=== PATIENT | male | born 1930 | race Caucasian/White ===

== ENCOUNTER 2017-07-13 10:35 | Emergency (ER) | payer MEDICARE, BC ==
[~2017-07-13] VITALS: Ht 177.8 cm; Wt 81.8 kg
[~2017-07-13 10:35] MED LIST: ASPIRIN 81M81 MG/TA2 PO; ATIVAN 0.50.5 MG/TAB PO; CLARITIN 1010 MG/TAB PO; LOPRESSOR 225 MG/TAB PO; MIRALAX PA17 GM/Dose PO; NATURE'S BLEND500 M1 PO; NEURONTIN300 MG/CAP PO; NORCO 325 MG-51 TAB PO; OCUVITE1 TA1 PO; PRIL40 PO; PRILOSEC10 MG PO; PRINIVIL10 MG PO; SINEMET 25/101 UDTAB PO; SINGULAIR 110 MG/TAB PO; TOPROL XL 50MG50 MG PO; TYLENOL 500MG500 MG PO; TYLENOL EXTRA500 M1 PO; ZANTAC 150MG T150 MG PO; ZOCOR 80MG80 MG PO; ZYLOPRIM 300MG300 MG PO
[2017-07-13 10:40] VITALS: TEMP 98.4
[2017-07-13 11:40] LABS: HEMATOCRIT 41.5 % (42.0-52.0); HEMOGLOBIN 13.9 g/dl (13.5-18.0); MEAN CELL VOLUME 96 fl (80.0-100.0); MEAN CORPUSCULAR HEMOGLOBIN 32 pg (27.0-31.0); MEAN CORPUSCULAR HGB CONC 34 g/dl (33.0-37.0); MEAN PLATELET VOLUME 11.4 fl (7.4-10.4); PLATELET COUNT 318 K/mm3 (130-400); RED BLOOD COUNT 4.31 M/mm3 (4.20-5.60); WHITE BLOOD COUNT 11.2 K/mm3 (4.8-10.8)
[2017-07-13 11:41] LABS: ADD PATHOLOGY DIFF REVIEW NO
[2017-07-13 11:49] LABS: ADJUSTED CALCIUM 9.4 mg/dL (8.4-10.2); ALBUMIN 3.7 gm/dL (3.5-5.0); BILIRUBIN,TOTAL 0.8 mg/dL (0.0-1.0); CALCIUM 9.2 mg/dL (8.4-10.2); CREATININE, serum 0.8 mg/dL (0.66-1.25); TOTAL PROTEIN 7.5 gm/dL (6.4-8.2); URIC ACID 4.1 mg/dL (3.5-8.5)
[2017-07-13 12:00] LABS: BAND 2 % (0-10); EOSINOPHIL 1 % (0-4); LYMPHOCYTE 5 % (20.0-51.0); NEUTROPHILS 82 % (42.0-75.2); PLATELET ESTIMATE NORMAL (NORMAL); TOTAL CELLS COUNTED 100
[2017-07-13 12:06] LABS: HYPOCHROMIA 1+
[2017-07-13] MEDS ORDERED: LEVAQUIN 5500 MG/TA1 PO (13:51)
[2017-07-13] MEDS ORDERED: VOLTAREN 75 DR75 MG PO (13:51)
[2017-07-13] MEDS ORDERED: PREDNISONE20 MG PO (13:51)
[2017-07-13] MEDS ORDERED: TYLENOL W/COD1 UDTAB PO (13:52)
[2017-07-13 14:00] VITALS: BP 140/73; PULSE 83
== END 2017-07-13 14:21 | disposition home or self-care (01) ==
LOC: COL.ER 10:35
PROVIDERS: Emergency Medicine
DX: M75.91 Shoulder lesion, unspecified, right shoulder (principal); L03.115 Cellulitis of right lower limb; E11.9 Type 2 diabetes mellitus without complications; I10 Essential (primary) hypertension; I25.10 Atherosclerotic heart disease of native coronary artery without angina pectoris; E78.5 Hyperlipidemia, unspecified; G20 Parkinson's disease; Z85.72 Personal history of non-Hodgkin lymphomas; Z87.891 Personal history of nicotine dependence; Z87.11 Personal history of peptic ulcer disease; Z79.82 Long term (current) use of aspirin; Z98.890 Other specified postprocedural states
CPT/HCPCS: J1885; J2405; J2930; J3010; J7030